=== PATIENT | female | born 1990 | race Two or more races ===

== ENCOUNTER 2020-02-22 09:17 | Emergency (ER) | payer SELFPAY ==
[~2020-02-22] VITALS: Ht 172.7 cm; Wt 72.6 kg
[2020-02-22 09:22] VITALS: BP 138/93
== END 2020-02-22 09:26 | disposition left against medical advice (07) ==
LOC: EDBD 09:17 → ER 09:17
DX: R51 Headache (principal); Z53.21 Procedure and treatment not carried out due to patient leaving prior to being seen by health care provider